=== PATIENT | male | born 1955 | race Caucasian/White ===

== ENCOUNTER 2017-12-02 19:04 | Inpatient (IN) | payer BC ==
[2017-12-02] VITALS (10 sets, daily range): BP systolic 108–133; BP diastolic 76–95
[~2017-12-02] VITALS: Ht 180.3 cm; Wt 94.0 kg
[~2017-12-02 19:04] MED LIST: CIPRO500 MG PO; METFORMIN HCL500 MG PO; VALSARTAN80 MG PO
[2017-12-02 19:30] LABS: PTT 25.8 SEC (25-37)
[2017-12-02 19:30] LABS: ALBUMIN 4.5 g/dL (3.2-4.8); CHLORIDE 107 mEq/L (99-109); POTASSIUM 4.4 mEq/L (3.7-5.4); SODIUM 140 mEq/L (136-147)
[2017-12-02 19:31] LABS: AMYLASE 56 IU/L (1-118)
[2017-12-02 19:33] LABS: GLUCOSE 116 mg/dL (70-99)
[2017-12-02 19:34] LABS: TOTAL BILIRUBIN 0.7 mg/dL (0.0-1.0)
[2017-12-02 19:36] LABS: ALKALINE PHOSPHATASE 72 IU/L (3-129); CREATININE 1.1 mg/dL (0.6-1.3); GFR ESTIMATE (CALCULATED) > 59 mL/min/ (58.99-99999); SERUM ETHYL ALCOHOL < 10 mg/dL
[2017-12-02 19:37] LABS: UREA NITROGEN (BUN) 21 mg/dL (9-23)
[2017-12-02 19:38] LABS: AST (GOT) 41 IU/L (2-34)
[2017-12-02 19:39] LABS: ALT (GPT) 30 IU/L (3-49)
[2017-12-02 19:40] LABS: LIPASE 30 U/L (1.0-51.0)
[2017-12-02 19:42] LABS: TROP-I INTERPRETATION NEGATIVE; TROPONIN-I 0.16 ng/mL (0.0-0.30)
[2017-12-02 19:43] LABS: BASOPHIL (%) 0.4 % (0-1); EOSINOPHIL (%) 3.9 % (0-5); EOSINOPHIL COUNT 0.3 K/uL (0-0.3); HEMATOCRIT 46.5 % (38.0-50.0); IMMATURE GRANULOCYTE (%) 0.2 % (0.0-0.7); LYMPHOCYTE COUNT 2.8 K/uL (1.0-2.8); MCH 32.1 PG (29.0-34.0); MCHC 34.4 G/DL (30.0-36.0); MCV 93.4 FL (86-99); MONOCYTE (%) 7.6 % (3-12); MONOCYTE COUNT 0.7 K/uL (0-0.8); NEUTROPHIL (%) 54.9 % (45-76); NEUTROPHIL COUNT 4.7 K/uL (1.8-6.4); PLATELET COUNT 206 K/uL (156-360); RBC DIS.WIDTH-CV 11.8 % (11.8-14.6); RBC DIS.WIDTH-SD 40.4 % (39-53); RED BLOOD COUNT 4.98 M/uL (4.00-5.50); WHITE BLOOD COUNT 8.6 K/uL (4.1-10.2)
[2017-12-03] VITALS (28 sets, daily range): BP systolic 88–134; BP diastolic 53–87
[2017-12-03 00:13] LABS: TROP-I INTERPRETATION POSITIVE; TROPONIN-I 58.11 ng/mL (0.0-0.30)
[2017-12-03 03:32] LABS: CK-MB 550.5 ng/mL (0.0-4.9)
[2017-12-03 03:37] LABS: CKMB RELATIVE INDEX 23.9 (0.0-3.9); CREATINE KINASE 2305 IU/L (1-294); TOTAL CK 2305 IU/L (1-294)
[2017-12-03 05:52] LABS: BASOPHIL (%) 0.2 % (0-1); EOSINOPHIL (%) 0.2 % (0-5); HEMATOCRIT 42.4 % (38.0-50.0); HEMOGLOBIN 14.4 G/DL (12.5-16.6); IMMATURE GRANULOCYTE (%) 0.3 % (0.0-0.7); LYMPHOCYTE (%) 5.8 % (15-42); LYMPHOCYTE COUNT 0.7 K/uL (1.0-2.8); MCV 94.2 FL (86-99); MONOCYTE (%) 4.8 % (3-12); MONOCYTE COUNT 0.6 K/uL (0-0.8); NEUTROPHIL (%) 88.7 % (45-76); NEUTROPHIL COUNT 10.2 K/uL (1.8-6.4); PLATELET COUNT 238 K/uL (156-360); RBC DIS.WIDTH-CV 11.9 % (11.8-14.6); RBC DIS.WIDTH-SD 41.1 % (39-53); WHITE BLOOD COUNT 11.6 K/uL (4.1-10.2)
[2017-12-03 06:15] LABS: CHLORIDE 105 MEQ/L (99-109); GFR ESTIMATE (CALCULATED) > 59 mL/min/ (58.99-99999); HDL CHOLESTEROL 33 MG/DL (Desirable>=40); LDL CHOLESTEROL 53 mg/dL (Desirable<100); NON-HDL CHOLESTEROL 74 mg/dL (Desirable<160); POTASSIUM 4.8 MEQ/L (3.7-5.4); SODIUM 137 MEQ/L (136-147); TOTAL CHOLESTEROL 107 mg/dL (Desirable<200); TRIGLYCERIDES 104 MG/DL (Normal: <150); UREA NITROGEN (BUN) 17 mg/dL (9-23)
[2017-12-03 06:38] LABS: GLUCOSE 238 mg/dL (70-99)
[2017-12-03 06:45] LABS: TROP-I INTERPRETATION POSITIVE; TROPONIN-I 79.32 ng/mL (0.0-0.30)
[2017-12-03 07:26] LABS: TOTAL CK 1909 IU/L (1-294)
[2017-12-03 07:28] LABS: CREATINE KINASE 1909 IU/L (1-294)
[2017-12-03 08:08] LABS: CK-MB 548.8 ng/mL (0.0-4.9); CKMB RELATIVE INDEX 28.7 (0.0-3.9)
[2017-12-03 10:08] LABS: HEMOGLOBIN A1c (GLYCOHEMOGLOB) 6.7 % (Below 5.7)
[2017-12-03] MEDS ORDERED: LEVOFLOXACIN500 MG PO (14:06)
[2017-12-03] MEDS ORDERED: POTASSIUM-9999 MG PO (14:07)
[2017-12-03] MEDS ORDERED: ASCORBIC ACID250 MG PO (14:07)
[2017-12-03] MEDS ORDERED: DAILY VITE1 EAC1 PO (14:07)
[2017-12-03] MEDS ORDERED: LO-DOSE ASPIRIN81 M1 PO (14:08)
[2017-12-03] MEDS ORDERED: VITAMIN B-150 MG PO (14:08)
[2017-12-03] MEDS ORDERED: TUMERIC PO (14:08)
[2017-12-03 18:22] LABS: INTER. NORMALIZED RATIO 1.1
[2017-12-03 18:25] LABS: PTT 29.5 SEC (25-37)
[2017-12-03 23:23] LABS: TROP-I INTERPRETATION POSITIVE
[2017-12-03 23:33] LABS: CK-MB 126.7 ng/mL (0.0-4.9); TROPONIN-I 42.89 ng/mL (0.0-0.30)
[2017-12-04] VITALS (14 sets, daily range): BP systolic 96–130; BP diastolic 69–88
[2017-12-04 05:31] LABS: CKMB RELATIVE INDEX 14.7 (0.0-3.9); CREATINE KINASE 860 IU/L (1-294); TOTAL CK 860 IU/L (1-294)
[2017-12-05] VITALS: BP 116/77
[2017-12-05 05:56] LABS: CHLORIDE 106 MEQ/L (99-109); CREATININE 0.8 MG/DL (0.6-1.3); GFR ESTIMATE (CALCULATED) > 59 mL/min/ (58.99-99999); GLUCOSE 133 mg/dL (70-99); SODIUM 138 MEQ/L (136-147); UREA NITROGEN (BUN) 12 mg/dL (9-23)
[2017-12-05 06:25] LABS: HEMATOCRIT 38.2 % (38.0-50.0); MCH 31.6 PG (29.0-34.0); MCV 92.9 FL (86-99); RBC DIS.WIDTH-CV 11.9 % (11.8-14.6); RBC DIS.WIDTH-SD 40.5 % (39-53); RED BLOOD COUNT 4.11 M/uL (4.00-5.50); WHITE BLOOD COUNT 7.6 K/uL (4.1-10.2)
[2017-12-05 06:53] LABS: PLAT.SUFFICIENCY DECREASED
[2017-12-05 06:54] LABS: PLATELET COUNT 140 K/uL (156-360)
[2017-12-05 08:00] VITALS: BP 116/76
[2017-12-05] MEDS ORDERED: CORDARONE200 MG PO (09:59)
[2017-12-05] MEDS ORDERED: NITROSTAT0.4 MG SL (09:59)
[2017-12-05] MEDS ORDERED: EFFIENT10 MG PO (09:59)
[2017-12-05] MEDS ORDERED: ATORVASTATIN CA40 MG PO (09:59)
[2017-12-05] MEDS ORDERED: VALSARTAN80 MG PO (10:00)
== END 2017-12-05 11:59 | disposition home or self-care (01) | DRG 246 ==
LOC: EME 19:04 → CATH 19:33 → EME 19:33 → ENRESERVDT 19:36 → ENRESERVTM 19:36 → ENRESERV 19:36 → 4WEST 21:40
PROVIDERS: Emergency Medicine; Internal Medicine Cardiovascular Disease; Internal Medicine Interventional Cardiology
PROC: 027034Z Dilation of Coronary Artery, One Artery with Drug-eluting Intraluminal Device, Percutaneous Approach (ICD-10-PCS; principal; 2017-12-02)
PROC: B2111ZZ Fluoroscopy of Multiple Coronary Arteries using Low Osmolar Contrast (ICD-10-PCS; principal; 2017-12-02)
PROC: 5A2204Z Restoration of Cardiac Rhythm, Single (ICD-10-PCS; principal; 2017-12-02)
PROC: B2151ZZ Fluoroscopy of Left Heart using Low Osmolar Contrast (ICD-10-PCS; principal; 2017-12-02)
PROC: 4A023N7 Measurement of Cardiac Sampling and Pressure, Left Heart, Percutaneous Approach (ICD-10-PCS; principal; 2017-12-02)
DX: I21.21 ST elevation (STEMI) myocardial infarction involving left circumflex coronary artery (principal); R57.0 Cardiogenic shock; I49.01 Ventricular fibrillation; I25.10 Atherosclerotic heart disease of native coronary artery without angina pectoris; E78.5 Hyperlipidemia, unspecified; I34.0 Nonrheumatic mitral (valve) insufficiency; I47.2 Ventricular tachycardia; E66.9 Obesity, unspecified; I10 Essential (primary) hypertension; L02.11 Cutaneous abscess of neck; F17.290 Nicotine dependence, other tobacco product, uncomplicated; I25.5 Ischemic cardiomyopathy; E11.9 Type 2 diabetes mellitus without complications; I49.3 Ventricular premature depolarization; Z68.28 Body mass index [BMI] 28.0-28.9, adult
CPT/HCPCS: 71045; 80048; 80053; 80061; 81003; 82150; 82550; 82550 91; 82553; 82948; 83036; 83690; 83880; 84484; 85025; 85027; 85347; 85610; 85730; 86850; 86900; 86901; 87641; 93005; 93306; 94799; 99281; 99284; C1725; C1757; C1769; C1874; C1887; G0480; J0153; J0461; J0583; J1265; J1644; J1815; J2250; J3010; J3246; J3475; J7030; S0028

== ENCOUNTER 2017-12-27 18:33 | Observation (INO) | payer BC ==
[~2017-12-27] VITALS: Ht 180.3 cm; Wt 91.3 kg
[~2017-12-27 18:33] MED LIST changes: +ASCORBIC ACID250 MG PO; +ATORVASTATIN CA40 MG PO; +CORDARONE200 MG PO; +DAILY VITE1 EAC1 PO; +EFFIENT10 MG PO; +LEVOFLOXACIN500 MG PO; +LO-DOSE ASPIRIN81 M1 PO; +NITROSTAT0.4 MG SL; +POTASSIUM-9999 MG PO; +TUMERIC PO; +VITAMIN B-150 MG PO
[2017-12-27 19:15] LABS: HEMATOCRIT 42.5 % (38.0-50.0); MCHC 35.3 G/DL (30.0-36.0); MCV 90.6 FL (86-99); PLATELET COUNT 182 K/uL (156-360); RBC DIS.WIDTH-CV 11.8 % (11.8-14.6); RBC DIS.WIDTH-SD 38.6 % (39-53); RED BLOOD COUNT 4.69 M/uL (4.00-5.50); WHITE BLOOD COUNT 6.9 K/uL (4.1-10.2)
[2017-12-27 19:21] LABS: CHLORIDE 103 mEq/L (99-109); POTASSIUM 4.4 mEq/L (3.7-5.4); SODIUM 138 mEq/L (136-147)
[2017-12-27 19:22] LABS: GLUCOSE 200 mg/dL (70-99)
[2017-12-27 19:26] LABS: GFR ESTIMATE (CALCULATED) > 59 mL/min/ (58.99-99999)
[2017-12-27 19:27] LABS: UREA NITROGEN (BUN) 15 mg/dL (9-23)
[2017-12-27 19:31] LABS: TROP-I INTERPRETATION NEGATIVE; TROPONIN-I 0.04 ng/mL (0.0-0.30)
[2017-12-27] MEDS ORDERED: VALSARTAN40 MG PO (20:33)
[2017-12-27] MEDS ORDERED: AMIODARONE HCL200 MG PO (20:34)
[2017-12-27] MEDS ORDERED: EFFIENT10 MG PO (20:35)
[2017-12-27] MEDS ORDERED: LIPITOR40 MG PO (20:35)
[2017-12-27 22:22] LABS: TROP-I INTERPRETATION NEGATIVE; TROPONIN-I 0.04 ng/mL (0.0-0.30)
[2017-12-27 22:25] VITALS: BP 152/100
[2017-12-27 23:37] VITALS: BP 122/79
[2017-12-28 01:32] LABS: TROP-I INTERPRETATION NEGATIVE; TROPONIN-I 0.03 ng/mL (0.0-0.30)
[2017-12-28 02:34] VITALS: BP 116/75
[2017-12-28 07:51] LABS: TROP-I INTERPRETATION NEGATIVE; TROPONIN-I 0.03 ng/mL (0.0-0.30)
[2017-12-28 08:50] VITALS: BP 131/85
[2017-12-28 11:11] VITALS: BP 138/80
[2017-12-28] MEDS ORDERED: LOPRESSOR25 MG PO (12:23)
[2017-12-28] MEDS ORDERED: LOSARTAN POTASS25 MG PO (12:23)
== END 2017-12-28 13:23 | disposition home or self-care (01) ==
LOC: EME 18:33 → EDOF 20:51 → 4EAST 20:51 → ENRESERV 20:53 → CANRESERV 20:53 → ENRESERV 22:04 → 4EAST 22:27
PROVIDERS: Emergency Medicine; Hospitalist; Physician Assistant Medical
DX: R07.89 Other chest pain (principal); R94.31 Abnormal electrocardiogram [ECG] [EKG]; I21.3 ST elevation (STEMI) myocardial infarction of unspecified site; I25.10 Atherosclerotic heart disease of native coronary artery without angina pectoris; E11.65 Type 2 diabetes mellitus with hyperglycemia; E78.5 Hyperlipidemia, unspecified; Z86.74 Personal history of sudden cardiac arrest; Z95.5 Presence of coronary angioplasty implant and graft; I10 Essential (primary) hypertension; Z82.49 Family history of ischemic heart disease and other diseases of the circulatory system; Z87.19 Personal history of other diseases of the digestive system; Z72.0 Tobacco use; Z82.3 Family history of stroke; Z79.82 Long term (current) use of aspirin; Z79.84 Long term (current) use of oral hypoglycemic drugs; Z79.02 Long term (current) use of antithrombotics/antiplatelets
CPT/HCPCS: 71046; 80048; 82948; 84484; 85027; 93005; 99281; 99285; G0378; J1650; J1815; J7030; J7040